=== PATIENT | female | born 2000 | race African-American/Black ===

== ENCOUNTER 2021-02-15 01:05 | Emergency (ER) | payer MEDICAID ==
[~2021-02-15] VITALS: Ht 165.1 cm; Wt 59.0 kg
[2021-02-15] MEDS ORDERED: DIPHENHYDRAMINE 50MG/ML VIAL IV ONE (01:30)
[2021-02-15] MEDS ORDERED: METHYLPREDNISOLONE SOD SUCC 125 MG/2 ML VIAL IV ONE (01:30)
[2021-02-15] MEDS ORDERED: FAMOTIDINE 20MG/2ML VIAL IV ONE (01:30)
[2021-02-15] MEDS ORDERED: EPINEPHRINE 1:1000 1 MG/ML AMP IM ONE (01:30)
[2021-02-15] MEDS ORDERED: ALBUTEROL (0.083%) 2.5MG/3ML NEB HHN SCH (01:30)
[2021-02-15] MEDS ORDERED: EPIN0.3P3 IM (04:31)
[2021-02-15] MEDS ORDERED: DIPH25TA26 PO (04:31)
[2021-02-15 04:47] VITALS: BP 103/79
== END 2021-02-15 04:55 | disposition home or self-care (01) ==
LOC: ER 01:18
DX: T50.901A Poisoning by unspecified drugs, medicaments and biological substances, accidental (unintentional), initial encounter (principal); T78.2XXA Anaphylactic shock, unspecified, initial encounter; H02.89 Other specified disorders of eyelid; R20.2 Paresthesia of skin; R22.0 Localized swelling, mass and lump, head; Y92.89 Other specified places as the place of occurrence of the external cause
CPT/HCPCS: 96372; 96374; 96375; 99284; J1200; J2930; J3490

== ENCOUNTER 2021-03-25 00:07 | Emergency (ER) | payer MEDICAID ==
[~2021-03-25] VITALS: Ht 165.1 cm; Wt 61.0 kg
[~2021-03-25 00:07] MED LIST: DIPH25TA26 PO; EPIN0.3P3 IM
[2021-03-25] MEDS ORDERED: AMOXICILLIN 500 MG CAPSULE PO ONE (02:00)
[2021-03-25] MEDS ORDERED: KETOROLAC 30MG/ML VIAL IM ONE (02:00)
[2021-03-25] MEDS ORDERED: AMOX-494 MT (02:08)
[2021-03-25] MEDS ORDERED: IBUP-2029 MT (02:08)
[2021-03-25 02:30] VITALS: BP 126/65
== END 2021-03-25 02:53 | disposition home or self-care (01) ==
LOC: ER 00:07
DX: J02.9 Acute pharyngitis, unspecified (principal)
CPT/HCPCS: 96372; 99283; J1885

== ENCOUNTER 2021-11-24 00:02 | Emergency (ER) | payer MEDICAID ==
[~2021-11-24] VITALS: Ht 165.1 cm; Wt 70.0 kg
[~2021-11-24 00:02] MED LIST changes: +AMOX-494 MT; +IBUP-2029 MT
[2021-11-24 00:34] LABS: HEMOGLOBIN. 10.2 g/dL (12.0-16.0)
[2021-11-24 00:46] LABS: CHLORIDE 109 mEq/L (98-107)
[2021-11-24 00:51] LABS: HEMATOCRIT. 32.6 % (36.0-48.0); MEAN CORPUSCULAR HEMOGLOBIN 17.3 pg (28.0-32.0); MEAN CORPUSCULAR VOLUME 55.3 fL (81.0-99.0); RED CELL DISTRIBUTION WIDTH 15.3 % (11.6-14.6)
[2021-11-24 00:55] LABS: ETHANOL BLOOD < 10 mg/dL
[2021-11-24] MEDS ORDERED: ONDANSETRON 4MG ODT PO ONE (01:00)
[2021-11-24 01:44] LABS: CLARITY URINE CLOUDY (CLEAR); COLOR URINE YELLOW (YELLOW); KETONES URINE 1+ (NEGATIVE); LEUKOCYTE ESTERASE URINE 2+ (NEGATIVE); NITRITE URINE NEGATIVE (NEGATIVE); OCCULT BLOOD URINE 1+ (NEGATIVE); PROTEIN URINE TRACE (NEGATIVE); SPECIFIC GRAVITY URINE 1.026 (1.005-1.030)
[2021-11-24 01:57] LABS: *AMPHETAMINES SCREEN URINE NEGATIVE (NEGATIVE); *BARBITURATES SCREEN URINE NEGATIVE (NEGATIVE); *BENZODIAZEPINES SCREEN URINE NEGATIVE (NEGATIVE); *COCAINE SCREEN URINE NEGATIVE (NEGATIVE); CANNABINOID URINE SCREEN NEGATIVE (NEGATIVE); METHADONE URINE SCREEN NEGATIVE (NEGATIVE); OPIATES URINE SCREEN NEGATIVE (NEGATIVE); PHENCYCLIDINE URINE SCREEN NEGATIVE (NEGATIVE)
[2021-11-24] MEDS ORDERED: ACETAMINOPHEN 325MG TABLET PO ONE (04:00)
[2021-11-24] MEDS ORDERED: ONDA4TAB11 PO (04:54)
[2021-11-24] MEDS ORDERED: NITR100C MT (04:54)
[2021-11-24 04:59] VITALS: BP 106/68
[2021-11-24 05:26] LABS: PLATELET 253 x1000/uL (130-400)
[2021-11-24 05:34] LABS: PLATELET ESTIMATE NORMAL
== END 2021-11-24 05:04 | disposition home or self-care (01) ==
LOC: ER 00:02
DX: J02.9 Acute pharyngitis, unspecified (principal); N39.0 Urinary tract infection, site not specified; R06.02 Shortness of breath; R11.2 Nausea with vomiting, unspecified; Z20.822 Contact with and (suspected) exposure to COVID-19; R00.0 Tachycardia, unspecified; J45.909 Unspecified asthma, uncomplicated
CPT/HCPCS: 36415; 71045; 80053; 80305; 80320; 81003; 81025; 83690; 85025; 87086; 87426; 87804; 99284; C9803; Q0162; G0480

== ENCOUNTER 2022-02-09 20:34 | Emergency (ER) | payer MEDICAID ==
[~2022-02-09] VITALS: Ht 165.1 cm; Wt 66.3 kg
[~2022-02-09 20:34] MED LIST changes: +NITR100C MT; +ONDA4TAB11 PO
[2022-02-09] MEDS ORDERED: AMOXICILLIN 500 MG CAPSULE PO ONE (23:30)
[2022-02-09] MEDS ORDERED: IBUPROFEN 600MG TABLET PO ONE (23:30)
[2022-02-09] MEDS ORDERED: AMOX-494 MT (23:45)
[2022-02-10 00:51] VITALS: BP 109/87
[2022-02-10] MEDS ORDERED: AMOX-494 MT (10:10)
== END 2022-02-10 00:52 | disposition home or self-care (01) ==
LOC: ER 20:34
DX: J03.00 Acute streptococcal tonsillitis, unspecified (principal); D64.9 Anemia, unspecified; J45.909 Unspecified asthma, uncomplicated; Z79.899 Other long term (current) drug therapy
CPT/HCPCS: 81025; 87070; 87430; 99283

== ENCOUNTER 2022-02-10 11:35 | Emergency (ER) | payer MEDICAID ==
[~2022-02-10] VITALS: Ht 165.1 cm; Wt 68.5 kg
[2022-02-10 11:42] VITALS: BP 120/72
[2022-02-10 12:37] LABS: HEMATOCRIT. 31.1 % (36.0-48.0); HEMOGLOBIN. 9.7 g/dL (12.0-16.0); MEAN CORPUSCULAR HEMOGLOBIN 17.1 pg (28.0-32.0); MEAN CORPUSCULAR VOLUME 55.2 fL (81.0-99.0); MEAN PLATELET VOLUME 8.6 fl (7.4-10.4); PLATELET 263 x1000/uL (130-400); RED BLOOD CELL COUNT 5.64 mill/uL (4.2-5.4); RED CELL DISTRIBUTION WIDTH 15.7 % (11.6-14.6)
[2022-02-10 15:17] LABS: PLATELET ESTIMATE NORMAL
== END 2022-02-10 14:20 | disposition home or self-care (01) ==
LOC: ER 11:56
DX: R04.2 Hemoptysis (principal); J45.909 Unspecified asthma, uncomplicated
CPT/HCPCS: 36415; 71045; 81025; 85025; 99284